=== PATIENT | female | born 1995 | race African-American/Black ===

== ENCOUNTER 2020-04-26 13:15 | Emergency (ER) | payer MEDICAID ==
[~2020-04-26] VITALS: Ht 177.8 cm; Wt 79.0 kg
[~2020-04-26 13:15] MED LIST: OTC MEDS
[2020-04-26] MEDS ORDERED: FLUORESCEIN SODIUM 1MG/STRIP LEFTEYE ONE (15:00)
[2020-04-26] MEDS ORDERED: TETRACAINE 0.5% OPHTH DROPS 4ML LEFTEYE ONE (15:00)
[2020-04-26] MEDS ORDERED: ACETAMINOPHEN 325MG TABLET PO ONE (15:00)
[2020-04-26 15:49] VITALS: BP 128/78
== END 2020-04-26 15:49 | disposition home or self-care (01) ==
LOC: ER 13:15
DX: H10.32 Unspecified acute conjunctivitis, left eye (principal); M79.605 Pain in left leg; F12.10 Cannabis abuse, uncomplicated; Z98.890 Other specified postprocedural states
CPT/HCPCS: 99283

== ENCOUNTER 2021-02-08 10:41 | Emergency (ER) | payer MEDICAID ==
[~2021-02-08] VITALS: Ht 177.8 cm; Wt 82.0 kg
[2021-02-08] MEDS ORDERED: ONDANSETRON HCL 4MG/2ML INJ IV STA (11:18)
[2021-02-08] MEDS ORDERED: MORPHINE SULFATE 4 MG/ML CPJ (NOT FOR IM USE) IV STA (11:18)
[2021-02-08] MEDS ORDERED: SODIUM CHLORIDE 0.9% 1,000 ML IV ONE (11:30)
[2021-02-08 11:37] LABS: BASOPHILS % 0.4 % (0.0-2.0); EOSINOPHILS % 0.6 % (0.0-5.0); HEMATOCRIT. 41.6 % (36.0-48.0); HEMOGLOBIN. 13.8 g/dL (12.0-16.0); MEAN CORPUSCULAR HEMOGLOBIN 31.5 pg (28.0-32.0); MEAN CORPUSCULAR VOLUME 94.7 fL (81.0-99.0); MEAN PLATELET VOLUME 7.5 fl (7.4-10.4); MONOCYTES % 6.9 % (2.0-8.0); NEUTROPHILS % 79.1 % (40.0-76.0); PLATELET 302 x1000/uL (130-400); RED BLOOD CELL COUNT 4.39 mill/uL (4.2-5.4); RED CELL DISTRIBUTION WIDTH 12.9 % (11.6-14.6)
[2021-02-08 11:45] LABS: CHLORIDE 108 mEq/L (98-107)
[2021-02-08 11:52] LABS: CLARITY URINE CLEAR (CLEAR); COLOR URINE YELLOW (YELLOW); KETONES URINE TRACE (NEGATIVE); LEUKOCYTE ESTERASE URINE TRACE (NEGATIVE); NITRITE URINE NEGATIVE (NEGATIVE); OCCULT BLOOD URINE 1+ (NEGATIVE); PROTEIN URINE TRACE (NEGATIVE); SPECIFIC GRAVITY URINE 1.031 (1.005-1.030)
[2021-02-08] MEDS ORDERED: HYDROMORPHONE HCL/PF 2MG/ML CPJ IV ONE (13:00)
[2021-02-08] MEDS ORDERED: IOHEXOL-350 100 ML BOTTLE ONE (13:24)
[2021-02-08] MEDS ORDERED: OXYC-100 MT (14:24)
[2021-02-08 15:05] VITALS: BP 119/77
== END 2021-02-08 15:27 | disposition home or self-care (01) ==
LOC: ER 10:46
DX: S83.095A Other dislocation of left patella, initial encounter (principal); Y04.0XXA Assault by unarmed brawl or fight, initial encounter; Y93.89 Activity, other specified; Y92.488 Other paved roadways as the place of occurrence of the external cause
CPT/HCPCS: 36415; 72191; 73706; 80053; 81003; 81025; 83690; 85025; 93005; 96361; 96374; 96375; 99285; J1170; J2270; J2405; J7030; L1830; Q9967; Z7610